=== PATIENT | male | born 1950 | race African-American/Black ===

== ENCOUNTER 2025-04-01 18:03 | Inpatient (IN) | payer MEDICARE, MEDICAID ==
[~2025-04-01] VITALS: Ht 165.1 cm; Wt 49.4 kg
[2025-04-01] MEDS ORDERED: METHYLPREDNISOLONE 40MG/ML INJ IV ONE (18:30)
[2025-04-01] MEDS ORDERED: ALBUTEROL (0.083%) 2.5MG/3ML NEB HHN ONE (18:30)
[2025-04-01] MEDS: SODIUM CHLORIDE 0.9% 1,000 ML IV ONE (19:13)
[2025-04-01] MEDS: MORPHINE SULFATE 4 MG/ML INJ (FOR IV/IM USE) IV ONE (19:16)
[2025-04-01] MEDS: ONDANSETRON HCL 4MG/2ML INJ IV ONE (19:17)
[2025-04-01] MEDS: METHYLPREDNISOLONE SOD SUCC 125MG/2ML (ACT-O-VIAL) IV SCH (19:18)
[2025-04-01 20:14] LABS: HEMATOCRIT. 27.1 % (42.0-52.0); HEMOGLOBIN. 8.9 g/dL (14.0-18.0); MEAN PLATELET VOLUME 7.5 fl (7.4-10.4); PLATELET 98 x1000/uL (130-400); RED BLOOD CELL COUNT 2.70 mill/uL (4.7-6.1); RED CELL DISTRIBUTION WIDTH 13.4 % (11.6-14.6)
[2025-04-01 20:27] LABS: CREATININE 0.5 mg/dL (0.6-1.3)
[2025-04-01 20:28] LABS: TROPONIN I HIGH SENSITIVITY < 4 ng/L (3.0-53); UREA NITROGEN BLOOD 6 mg/dL (9-23)
[2025-04-01 20:30] LABS: ASPARTATE AMINOTRANSFERASE 29 IU/L (<34); BILIRUBIN DIRECT 0.3 mg/dL (<=3.0); BILIRUBIN TOTAL 0.7 mg/dL (0.1-1.0); PROTEIN TOTAL 6.1 g/dL (6.0-8.3)
[2025-04-01] MEDS: ALBUTEROL (0.083%) 2.5MG/3ML NEB HHN SCH (20:48)
[2025-04-01 20:50] VITALS: PULSE 112; RESP 20; O2SAT 98
[2025-04-01 21:39] LABS: LYMPHOCYTES % MANUAL 14.0 % (20.0-50.0); MONOCYTES % MANUAL 17.0 % (2.0-8.0); NEUTROPHILS % MANUAL 69.0 % (45.0-75.0); PLATELET ESTIMATE DECREASED
[2025-04-02] VITALS (8 sets, daily range): BP systolic 105–142; BP diastolic 55–85; PULSE 84–130; RESP 18–22; TEMP 36.5–36.8; O2SAT 96–100
[2025-04-02] MEDS ORDERED: ONDANSETRON HCL 4MG/2ML INJ IV PRN ×3 (02:15→16:30)
[2025-04-02] MEDS ORDERED: DOCUSATE SODIUM 100MG CAPSULE PO PRN (02:15)
[2025-04-02] MEDS ORDERED: ACETAMINOPHEN 325MG TABLET PO PRN (02:15)
[2025-04-02] MEDS ORDERED: IPRATROPIUM/ALBUTEROL 0.5-3(2.5)MG/3ML NEB HHN PRN (02:15)
[2025-04-02] MEDS: PANTOPRAZOLE SODIUM 40 MG/VIAL IV SCH (04:02)
[2025-04-02] MEDS: METHYLPREDNISOLONE SOD SUCC 40MG/ML (ACT-O-VIAL) IV SCH (04:03)
[2025-04-02] MEDS: ACETAMINOPHEN 325MG TABLET PO PRN (04:03)
[2025-04-02] MEDS: IPRATROPIUM/ALBUTEROL 0.5-3(2.5)MG/3ML NEB HHN SCH (08:13)
[2025-04-02] MEDS ORDERED: ENOXAPARIN 30MG/0.3ML SYR SUBCUT SCH (09:00)
[2025-04-02] MEDS: KETOROLAC 30MG/ML VIAL IV PRN (11:30)
[2025-04-02 13:24] LABS: CREATINE KINASE MB FRACTION 2.5 ng/mL (0.5-3.6)
[2025-04-02] MEDS ORDERED: PROPOFOL 200MG/20ML VIAL IV ONE (14:49)
[2025-04-02] MEDS ORDERED: FENTANYL CITRATE/PF 50MCG/ML 2ML VIAL ONE (14:49)
[2025-04-02] MEDS ORDERED: DEXAMETHASONE 4MG/ML 1ML VIAL ONE (14:49)
[2025-04-02] MEDS ORDERED: ONDANSETRON HCL 4MG/2ML INJ ONE (14:49)
[2025-04-02] MEDS ORDERED: LIDOCAINE HCL 1% 10 MG/ML 10ML VIAL ONE (14:51)
[2025-04-02] MEDS ORDERED: ACETAMINOPHEN 1000MG/100ML 100 ML IV ONE (14:53)
[2025-04-02] MEDS ORDERED: VANCOMYCIN HCL 1GM VIAL ONE (14:53)
[2025-04-02] MEDS ORDERED: LIDOCAINE HCL/EPINEPHRINE 1%-EPI 1:100,000 20ML VIAL ONE (14:53)
[2025-04-02] MEDS ORDERED: FAMOTIDINE 20MG/2ML VIAL IV ONE (14:54)
[2025-04-02] MEDS ORDERED: HYDROCODONE/ACETAMINOPHEN 5/325MG TABLET PO PRN (15:15)
[2025-04-02] MEDS ORDERED: FENTANYL CITRATE/PF 50MCG/ML 2ML VIAL IV PRN (16:30)
[2025-04-02] MEDS ORDERED: HYDRALAZINE 20MG/ML VIAL IV PRN (16:30)
[2025-04-02] MEDS ORDERED: HYDROMORPHONE HCL/PF 1MG/ML INJ IV PRN (16:30)
[2025-04-02] MEDS ORDERED: LABETALOL 5MG/ML 4ML INJ IV PRN (16:30)
[2025-04-02] MEDS: ALBUTEROL (0.083%) 2.5MG/3ML NEB HHN SCH (16:48)
[2025-04-02 22:20] LABS: INR 1.1
[2025-04-02 22:28] LABS: CREATINE KINASE MB FRACTION 5.2 ng/mL (0.5-3.6)
[2025-04-02] MEDS: CEFAZOLIN 1000MG PREMIX 50 ML IV SCH (22:29)
[2025-04-02] MEDS: SODIUM CHLORIDE 0.9% 500 ML IV ONE (23:21)
[2025-04-03] VITALS (10 sets, daily range): BP systolic 118–146; BP diastolic 65–82; PULSE 77–107; RESP 17–22; TEMP 36.5–36.9; O2SAT 95–100
[2025-04-03 07:43] LABS: HEMATOCRIT. 21.3 % (42.0-52.0); HEMOGLOBIN. 7.1 g/dL (14.0-18.0); MEAN PLATELET VOLUME 8.1 fl (7.4-10.4); PLATELET 90 x1000/uL (130-400); RED BLOOD CELL COUNT 2.16 mill/uL (4.7-6.1); RED CELL DISTRIBUTION WIDTH 13.0 % (11.6-14.6)
[2025-04-03 07:45] LABS: CREATININE 0.6 mg/dL (0.6-1.3); UREA NITROGEN BLOOD 14 mg/dL (9-23)
[2025-04-03] MEDS: GUAIFENESIN 200MG/10ML SUGAR FREE UDC PO PRN (10:04)
[2025-04-03] MEDS: METHYLPREDNISOLONE SOD SUCC 40MG/ML (ACT-O-VIAL) IV SCH (10:04)
[2025-04-03] MEDS: ENOXAPARIN 40MG/0.4ML SYR SUBCUT SCH (10:04)
[2025-04-03 11:09] LABS: BAND% 5.0 % (1.0-6.0); LYMPHOCYTES % MANUAL 2.0 % (20.0-50.0); MONOCYTES % MANUAL 6.0 % (2.0-8.0); NEUTROPHILS % MANUAL 87.0 % (45.0-75.0)
[2025-04-03 11:10] LABS: PLATELET ESTIMATE DECREASED
[2025-04-03] MEDS: HYDROMORPHONE HCL/PF 2MG/ML INJ IV PRN (11:18)
[2025-04-03 18:03] LABS: CLARITY URINE CLEAR (CLEAR); COLOR URINE YELLOW (YELLOW); GLUCOSE URINE NEGATIVE (NEGATIVE); KETONES URINE NEGATIVE (NEGATIVE); LEUKOCYTE ESTERASE URINE NEGATIVE (NEGATIVE); NITRITE URINE NEGATIVE (NEGATIVE); OCCULT BLOOD URINE NEGATIVE (NEGATIVE); PH URINE 5.5 (4.5-8.0); PROTEIN URINE NEGATIVE (NEGATIVE); SPECIFIC GRAVITY URINE 1.018 (1.005-1.030); UROBILINOGEN URINE 1.0 E.U./dL (0.2-1.0)
[2025-04-03 18:26] LABS: *AMPHETAMINES SCREEN URINE NEGATIVE (NEGATIVE); *BARBITURATES SCREEN URINE NEGATIVE (NEGATIVE); *BENZODIAZEPINES SCREEN URINE NEGATIVE (NEGATIVE); *COCAINE SCREEN URINE NEGATIVE (NEGATIVE); CANNABINOID URINE SCREEN PRESUMPTIVE POSITIVE (NEGATIVE); ECSTASY MDMA SCREEN URINE NEGATIVE (NEGATIVE); METHADONE URINE SCREEN NEGATIVE (NEGATIVE); OPIATES URINE SCREEN PRESUMPTIVE POSITIVE (NEGATIVE); PHENCYCLIDINE URINE SCREEN NEGATIVE (NEGATIVE)
[2025-04-04] VITALS (10 sets, daily range): BP systolic 113–161; BP diastolic 60–80; PULSE 74–102; RESP 18–20; TEMP 36.6–37.3; O2SAT 96–100
[2025-04-04 06:10] LABS: CREATININE 0.6 mg/dL (0.6-1.3); UREA NITROGEN BLOOD 21 mg/dL (9-23)
[2025-04-04 06:55] LABS: BASOPHILS % 0.1 % (0.0-2.0); EOSINOPHILS % 0.0 % (0.0-5.0); HEMATOCRIT. 22.0 % (42.0-52.0); HEMOGLOBIN. 7.3 g/dL (14.0-18.0); LYMPHOCYTES % 8.2 % (20.0-50.0); MEAN PLATELET VOLUME 7.9 fl (7.4-10.4); MONOCYTES % 10.6 % (2.0-8.0); NEUTROPHILS % 81.1 % (40.0-76.0); PLATELET 99 x1000/uL (130-400); RED BLOOD CELL COUNT 2.22 mill/uL (4.7-6.1); RED CELL DISTRIBUTION WIDTH 13.7 % (11.6-14.6)
[2025-04-04] MEDS: CLONIDINE 0.1MG TABLET PO PRN (14:35)
[2025-04-05] VITALS (11 sets, daily range): BP systolic 124–158; BP diastolic 6–85; PULSE 77–104; RESP 18–20; TEMP 36.2–37.4; O2SAT 20–100
[2025-04-05 06:51] LABS: BASOPHILS % 0.1 % (0.0-2.0); EOSINOPHILS % 0.0 % (0.0-5.0); HEMATOCRIT. 22.4 % (42.0-52.0); HEMOGLOBIN. 7.5 g/dL (14.0-18.0); LYMPHOCYTES % 14.3 % (20.0-50.0); MEAN PLATELET VOLUME 7.8 fl (7.4-10.4); MONOCYTES % 11.7 % (2.0-8.0); NEUTROPHILS % 73.9 % (40.0-76.0); PLATELET 116 x1000/uL (130-400); RED BLOOD CELL COUNT 2.26 mill/uL (4.7-6.1); RED CELL DISTRIBUTION WIDTH 13.5 % (11.6-14.6)
[2025-04-05] MEDS: HYDROCODONE/ACETAMINOPHEN 5/325MG TABLET PO PRN (11:53)
== END 2025-04-05 22:40 | DRG 481 ==
LOC: ER 18:03 → EDBEDREQ 18:31 → 8WST 21:52 → EDBEDREQTM 22:17 → EDBEDREQ 22:17 → ENRESERV 22:43
PROVIDERS: ADMIT Hospitalist; ATTEND Hospitalist
PROC: 0QH606Z Insertion of Intramedullary Internal Fixation Device into Right Upper Femur, Open Approach (ICD-10-PCS; principal; 2025-04-02)
DX: S72.144A Nondisplaced intertrochanteric fracture of right femur, initial encounter for closed fracture (principal); D61.818 Other pancytopenia; I50.9 Heart failure, unspecified; D63.8 Anemia in other chronic diseases classified elsewhere; B18.2 Chronic viral hepatitis C; F12.10 Cannabis abuse, uncomplicated; J44.9 Chronic obstructive pulmonary disease, unspecified; R13.10 Dysphagia, unspecified; R49.0 Dysphonia; F17.210 Nicotine dependence, cigarettes, uncomplicated; J98.4 Other disorders of lung; F14.10 Cocaine abuse, uncomplicated; Z85.819 Personal history of malignant neoplasm of unspecified site of lip, oral cavity, and pharynx; Z85.21 Personal history of malignant neoplasm of larynx; W18.39XA Other fall on same level, initial encounter; Y93.89 Activity, other specified; Y92.89 Other specified places as the place of occurrence of the external cause; Y99.8 Other external cause status
CPT/HCPCS: 36415; 71045; 73502; 73503; 76000; 80048; 80076; 80305; 81003; 82550; 82553; 82728; 83540; 83550; 83605; 83880; 84145; 84484; 85025; 85027; 86850; 86900; 93005; 93970; 94070; 94640; 94664; 96361; 96374; 96375; 97116; 97162; 97166; 97530; 99291; A4606; J0690; J1100; J1171; J1308; J1650; J1885; J2003; J2004; J2270; J2405; J2470; J2704; J2919; J3010; J3373; J7030; C1713; J0131

== ENCOUNTER 2025-04-05 22:50 | Inpatient (IN) | payer MEDICARE, MEDICAID ==
[~2025-04-05] VITALS: Ht 165.1 cm; Wt 50.8 kg
[2025-04-05 22:30] VITALS: BP 130/72; PULSE 100; RESP 20; TEMP 37.0296
[2025-04-05 23:00] VITALS: BP 130/72; PULSE 100; RESP 20; TEMP 37; O2SAT 99
[2025-04-06] VITALS (7 sets, daily range): BP systolic 122–134; BP diastolic 69–78; PULSE 94–113; RESP 17–26; TEMP 36.6; O2SAT 88–100
[2025-04-06] MEDS ORDERED: BUDESONIDE 0.5MG/2ML NEB HHN SCH (02:30)
[2025-04-06] MEDS ORDERED: METHYLPREDNISOLONE SOD SUCC 40MG/ML (ACT-O-VIAL) IV SCH (02:30)
[2025-04-06] MEDS: METHYLPREDNISOLONE SOD SUCC 125MG/2ML (ACT-O-VIAL) IV NR (02:30)
[2025-04-06] MEDS ORDERED: NALOXONE HCL 0.4MG/ML VIAL IV PRN (02:30)
[2025-04-06] MEDS: HYDROMORPHONE HCL/PF 2MG/ML INJ IV NR (02:49)
[2025-04-06] MEDS ORDERED: CLONIDINE 0.1MG TABLET PO PRN (03:00)
[2025-04-06] MEDS ORDERED: HYDROMORPHONE HCL/PF 2MG/ML INJ IV PRN (03:00)
[2025-04-06] MEDS ORDERED: ONDANSETRON HCL 4MG/2ML INJ IV PRN (03:00)
[2025-04-06] MEDS ORDERED: ACETAMINOPHEN 325MG TABLET PO PRN ×2 (03:00)
[2025-04-06] MEDS ORDERED: DOCUSATE SODIUM 100MG CAPSULE PO PRN (03:00)
[2025-04-06] MEDS: IPRATROPIUM/ALBUTEROL 0.5-3(2.5)MG/3ML NEB HHN SCH (06:01)
[2025-04-06 06:59] LABS: HEMATOCRIT. 21.7 % (42.0-52.0); HEMOGLOBIN. 7.3 g/dL (14.0-18.0); MEAN PLATELET VOLUME 7.9 fl (7.4-10.4); PLATELET 122 x1000/uL (130-400); RED BLOOD CELL COUNT 2.19 mill/uL (4.7-6.1); RED CELL DISTRIBUTION WIDTH 13.1 % (11.6-14.6)
[2025-04-06 07:12] LABS: CREATININE 0.6 mg/dL (0.6-1.3)
[2025-04-06 07:13] LABS: UREA NITROGEN BLOOD 17 mg/dL (9-23)
[2025-04-06 07:14] LABS: ASPARTATE AMINOTRANSFERASE 62 IU/L (<34)
[2025-04-06 07:15] LABS: BILIRUBIN TOTAL 0.8 mg/dL (0.1-1.0); PROTEIN TOTAL 6.2 g/dL (6.0-8.3)
[2025-04-06] MEDS: BUDESONIDE 0.5MG/2ML NEB HHN SCH (07:27)
[2025-04-06] MEDS ORDERED: ENOXAPARIN 40MG/0.4ML SYR SUBCUT SCH (09:00)
[2025-04-06] MEDS: ENOXAPARIN 30MG/0.3ML SYR SUBCUT SCH (09:00)
[2025-04-06] MEDS: METHYLPREDNISOLONE SOD SUCC 40MG/ML (ACT-O-VIAL) IV SCH (09:36)
[2025-04-06] MEDS: PANTOPRAZOLE SODIUM 40 MG/VIAL IV SCH (09:36)
[2025-04-06] MEDS: AMLODIPINE 5MG TABLET PO SCH (09:37)
[2025-04-06 14:57] LABS: BG BASE EXCESS 7.8 mmol/L (-2.0-3.0); BG CARBOXYHEMOGLOBIN 0.7 % (0.5-1.5); BG DEOXYHEMOGLOBIN 2.3 % (0.0-5.0); BG FRACTION INSPIRED OXYGEN 21; BG HCO3 ACT 32.1 mmol/L (21.0-28.0); BG METHEMOGLOBIN 0.3 % (0.5-1.5); BG OXYGEN SATURATION 97.7 % (94.0-98.0); BG OXYHEMOGLOBIN 96.7 % (94.0-98.0); BG PCO2 44.5 mmHg (35.0-48.0); BG PH 7.476 (7.350-7.450); BG PO2 92.8 mmHg (83.0-108.0); BG SAMPLE SITE RIGHT BRACHIAL; BG TOTAL HEMOGLOBIN 7.9 g/dL (13.5-17.5); BG VENT MODE ROOM AIR
[2025-04-06] MEDS: HYDROMORPHONE HCL/PF 2MG/ML INJ IV PRN (15:19)
[2025-04-06] MEDS ORDERED: IPRATROPIUM/ALBUTEROL 0.5-3(2.5)MG/3ML NEB HHN PRN (16:00)
[2025-04-06] MEDS: HYDROCODONE/ACETAMINOPHEN 5/325MG TABLET PO PRN (21:10)
[2025-04-06] MEDS: QUETIAPINE FUMARATE 25MG TABLET PO SCH (21:44)
[2025-04-07] VITALS (7 sets, daily range): BP systolic 137–141; BP diastolic 74–84; PULSE 100–118; RESP 18–21; TEMP 36.1–36.2; O2SAT 96–100
[2025-04-07 11:26] LABS: BG BASE EXCESS 5.9 mmol/L (-2.0-3.0); BG CARBOXYHEMOGLOBIN 1.2 % (0.5-1.5); BG DEOXYHEMOGLOBIN 0.9 % (0.0-5.0); BG FLOW(L/min) 2.00 L/min; BG FRACTION INSPIRED OXYGEN 28; BG HCO3 ACT 30.2 mmol/L (21.0-28.0); BG METHEMOGLOBIN 0.1 % (0.5-1.5); BG OXYGEN SATURATION 99.1 % (94.0-98.0); BG OXYHEMOGLOBIN 97.8 % (94.0-98.0); BG PCO2 43.0 mmHg (35.0-48.0); BG PH 7.464 (7.350-7.450); BG PO2 141.4 mmHg (83.0-108.0); BG SAMPLE SITE LEFT BRACHIAL; BG TOTAL HEMOGLOBIN 7.6 g/dL (13.5-17.5); BG VENT MODE NASAL CANNULA
[2025-04-07 14:09] LABS: BAND% 2.0 % (1.0-6.0); LYMPHOCYTES % MANUAL 4.0 % (20.0-50.0); MONOCYTES % MANUAL 2.0 % (2.0-8.0); NEUTROPHILS % MANUAL 92.0 % (45.0-75.0)
[2025-04-07 14:10] LABS: PLATELET ESTIMATE SLIGHTLY DECREASED
[2025-04-07] MEDS ORDERED: DOCUSATE SODIUM 100MG CAPSULE NG PRN (17:15)
[2025-04-07] MEDS: DOCUSATE SODIUM SUGAR FREE 100MG/10ML UDC NG PRN (17:42)
[2025-04-07] MEDS ORDERED: MORPHINE SULFATE 2 MG/ML INJ (NOT FOR IM USE) IV ONE (22:15)
[2025-04-08] VITALS (8 sets, daily range): BP systolic 131–134; BP diastolic 75–82; PULSE 99–110; RESP 16–20; TEMP 36.7–37.3; O2SAT 98–100
[2025-04-08 07:55] LABS: HEMATOCRIT. 21.3 % (42.0-52.0); HEMOGLOBIN. 7.2 g/dL (14.0-18.0); MEAN PLATELET VOLUME 7.7 fl (7.4-10.4); PLATELET 151 x1000/uL (130-400); RED BLOOD CELL COUNT 2.13 mill/uL (4.7-6.1); RED CELL DISTRIBUTION WIDTH 13.8 % (11.6-14.6)
[2025-04-08 08:19] LABS: PROTEIN TOTAL 6.0 g/dL (6.0-8.3)
[2025-04-08 08:20] LABS: CREATININE 0.7 mg/dL (0.6-1.3); UREA NITROGEN BLOOD 18 mg/dL (9-23)
[2025-04-08 08:21] LABS: ASPARTATE AMINOTRANSFERASE 45 IU/L (<34)
[2025-04-08 08:22] LABS: BILIRUBIN TOTAL 0.5 mg/dL (0.1-1.0)
[2025-04-08 08:23] LABS: FOLIC ACID (FOLATE) SERUM 11.81 ng/mL (>5.38); VITAMIN B12 SERUM 454 pg/mL (211-911)
[2025-04-08 18:42] LABS: LYMPHOCYTES % MANUAL 7.0 % (20.0-50.0); MONOCYTES % MANUAL 12.0 % (2.0-8.0); NEUTROPHILS % MANUAL 81.0 % (45.0-75.0); PLATELET ESTIMATE NORMAL
[2025-04-09 00:13] VITALS: PULSE 100; RESP 20; O2SAT 99
[2025-04-09 03:46] VITALS: PULSE 90; RESP 20; O2SAT 99
[2025-04-09 08:00] VITALS: BP 147/79; PULSE 100; RESP 18; TEMP 36.4; O2SAT 100
[2025-04-09 20:00] VITALS: BP 138/76; PULSE 100; RESP 20; TEMP 36.8; O2SAT 100
[2025-04-10 00:49] VITALS: BP 138/76; PULSE 100; RESP 20; TEMP 36.8; O2SAT 100
[2025-04-10 08:00] VITALS: BP 144/81; PULSE 100; RESP 20; TEMP 37; O2SAT 100
[2025-04-10 08:49] VITALS: PULSE 90; RESP 21; O2SAT 99
[2025-04-10 13:41] VITALS: PULSE 92; RESP 23; O2SAT 100
[2025-04-10 19:49] VITALS: PULSE 90; RESP 24; O2SAT 97
[2025-04-10 20:00] VITALS: BP 129/71; PULSE 99; RESP 20; TEMP 36.7; O2SAT 99
[2025-04-11 08:00] VITALS: BP 124/75; PULSE 90; RESP 19; TEMP 36.4; O2SAT 96
[2025-04-11] MEDS: GUAIFENESIN 200MG/10ML SUGAR FREE UDC PO PRN (08:51)
[2025-04-11] MEDS ORDERED: NALOXONE HCL 0.4MG/ML VIAL IV PRN (15:15)
[2025-04-11] MEDS: HYDROCODONE/ACETAMINOPHEN 5/325MG TABLET PO PRN (15:20)
[2025-04-11] MEDS: ERGOCALCIFEROL 50000UNITS CAPSULE PO SCH (17:24)
[2025-04-11 20:00] VITALS: BP 133/76; PULSE 95; RESP 17; TEMP 37.1; O2SAT 100
[2025-04-12 02:11] VITALS: PULSE 75; RESP 18; O2SAT 98
[2025-04-12 08:00] VITALS: BP 142/78; PULSE 97; RESP 19; TEMP 36.6; O2SAT 100
[2025-04-12 13:34] VITALS: PULSE 88; RESP 20; O2SAT 98
[2025-04-12] MEDS: IPRATROPIUM/ALBUTEROL 0.5-3(2.5)MG/3ML NEB HHN PRN (13:34)
[2025-04-12] MEDS: HYDROMORPHONE HCL/PF 2MG/ML INJ IV PRN (14:24)
[2025-04-12 17:14] VITALS: PULSE 86; RESP 16; O2SAT 98
[2025-04-12] MEDS: IPRATROPIUM/ALBUTEROL 0.5-3(2.5)MG/3ML NEB HHN SCH (17:14)
[2025-04-12 19:47] VITALS: PULSE 106; RESP 20; O2SAT 99
[2025-04-12 20:00] VITALS: BP 94/48; PULSE 88; RESP 19; TEMP 36.8; O2SAT 99
[2025-04-13] VITALS (7 sets, daily range): BP systolic 143–145; BP diastolic 80; PULSE 88–109; RESP 18–20; TEMP 36.2–37.3; O2SAT 98–100
[2025-04-13] MEDS: METHYLPREDNISOLONE SOD SUCC 40MG/ML (ACT-O-VIAL) IV SCH (20:10)
[2025-04-14 01:36] VITALS: PULSE 95; RESP 18; O2SAT 99
[2025-04-14 04:09] VITALS: PULSE 99; RESP 18; O2SAT 99
[2025-04-14 08:00] VITALS: BP 136/79; PULSE 94; RESP 18; TEMP 36.7; O2SAT 98
[2025-04-14 09:54] VITALS: PULSE 97; RESP 18; O2SAT 97
[2025-04-14 19:52] VITALS: PULSE 102; RESP 20; O2SAT 97
[2025-04-14 20:00] VITALS: BP 124/80; PULSE 104; RESP 20; TEMP 36.4; O2SAT 100
[2025-04-15] VITALS (8 sets, daily range): BP systolic 129; BP diastolic 77; PULSE 95–103; RESP 16–20; TEMP 36.6–36.7; O2SAT 98–100
[2025-04-15 08:07] LABS: CREATININE 0.7 mg/dL (0.6-1.3); UREA NITROGEN BLOOD 22 mg/dL (9-23)
[2025-04-15 08:25] LABS: HEMATOCRIT. 23.2 % (42.0-52.0); HEMOGLOBIN. 7.7 g/dL (14.0-18.0); MEAN PLATELET VOLUME 7.3 fl (7.4-10.4); PLATELET 105 x1000/uL (130-400); RED BLOOD CELL COUNT 2.23 mill/uL (4.7-6.1); RED CELL DISTRIBUTION WIDTH 17.4 % (11.6-14.6)
[2025-04-15 20:22] LABS: LYMPHOCYTES % MANUAL 4.0 % (20.0-50.0); METAMYELOCYTES % 2.0 % (0-0); MONOCYTES % MANUAL 8.0 % (2.0-8.0); MYELOCYTES % 2.0 % (0-0); NEUTROPHILS % MANUAL 84.0 % (45.0-75.0); PLATELET ESTIMATE DECREASED
[2025-04-16] VITALS (7 sets, daily range): BP systolic 119–132; BP diastolic 75–80; PULSE 87–104; RESP 19–24; TEMP 36.5–37.4; O2SAT 97–100
[2025-04-16] MEDS: METHYLPREDNISOLONE SOD SUCC 40MG/ML (ACT-O-VIAL) IV SCH (21:35)
[2025-04-17 01:23] VITALS: PULSE 84; RESP 22
[2025-04-17 08:00] VITALS: BP 136/76; PULSE 98; RESP 19; TEMP 37.1; O2SAT 98
[2025-04-17] MEDS ORDERED: HYDROMORPHONE HCL/PF 2MG/ML INJ IV PRN (15:30)
[2025-04-17] MEDS: HYDROMORPHONE HCL/PF 2MG/ML INJ IV PRN (19:41)
[2025-04-17 20:00] VITALS: BP 131/104; PULSE 96; RESP 19; TEMP 36.6; O2SAT 100
[2025-04-18 08:00] VITALS: BP 129/82; PULSE 82; RESP 17; TEMP 36.5; O2SAT 100
[2025-04-18 09:11] VITALS: BP 129/82; PULSE 82; RESP 18; TEMP 97.7
[2025-04-18] MEDS: HYDROMORPHONE HCL/PF 2MG/ML INJ IV PRN (14:28)
== END 2025-04-18 14:45 | disposition hospice, home (50) | DRG 559 ==
PROVIDERS: ADMIT Physical Medicine & Rehabilitation Spinal Cord Injury Medicine; ATTEND Hospitalist
DX: S72.144D Nondisplaced intertrochanteric fracture of right femur, subsequent encounter for closed fracture with routine healing (principal); E43 Unspecified severe protein-calorie malnutrition; J96.20 Acute and chronic respiratory failure, unspecified whether with hypoxia or hypercapnia; R64 Cachexia; D61.818 Other pancytopenia; J44.1 Chronic obstructive pulmonary disease with (acute) exacerbation; R13.10 Dysphagia, unspecified; I50.9 Heart failure, unspecified; K74.60 Unspecified cirrhosis of liver; B15.9 Hepatitis A without hepatic coma; Z68.1 Body mass index [BMI] 19.9 or less, adult; B18.2 Chronic viral hepatitis C; R49.0 Dysphonia; R26.9 Unspecified abnormalities of gait and mobility; R53.81 Other malaise; Z99.81 Dependence on supplemental oxygen; D75.89 Other specified diseases of blood and blood-forming organs; E55.9 Vitamin D deficiency, unspecified; I25.10 Atherosclerotic heart disease of native coronary artery without angina pectoris; F17.210 Nicotine dependence, cigarettes, uncomplicated; J43.9 Emphysema, unspecified; M85.80 Other specified disorders of bone density and structure, unspecified site; Z60.2 Problems related to living alone; Z85.21 Personal history of malignant neoplasm of larynx
CPT/HCPCS: 36415; 36600; 71045; 74230; 80048; 80053; 82306; 82375; 82607; 82728; 82746; 82805; 82962; 83540; 83550; 84134; 84443; 85025; 85379; 92610; 92611; 94070; 94640; 94664; 94760; 97110; 97116; 97162; 97166; 97530; 97535; 98960; A4606; A4615; J1171; J1650; J2470; J2919; J7626